=== PATIENT | male | born 2000 ===

== ENCOUNTER 2023-04-04 18:06 | Emergency (ER) | payer SELFPAY ==
[2023-04-04 18:08] VITALS: BP 140/94; PULSE 115; RESP 18; TEMP 36.9; O2SAT 98; BMI 29.5
== END 2023-04-04 21:18 | disposition left against medical advice (07) ==
LOC: ED 21:17
DX: Z53.21 Procedure and treatment not carried out due to patient leaving prior to being seen by health care provider (principal)